=== PATIENT | female | born 1980 | race Caucasian/White ===

== ENCOUNTER 2024-05-25 00:02 | Inpatient (IN) | payer BC ==
[2024-05-25] MEDS ORDERED: EPINEPHrine 10 ML SYRINGE (0.1 MG/ML) ONE (00:04)
[2024-05-25] MEDS ORDERED: SODIUM BICARB 8.4% 50 ML SYR (1 MEQ/ML) ONE (00:04)
[2024-05-25] MEDS: SODIUM CHLORIDE 0.9% 1,000 ML IV STA ×2 (00:07→00:10)
[2024-05-25] MEDS: MAGNESIUM SULFATE-D5W PMX 1 GM in DEXTROSE/WATER 1 100ML.BAG IVPB ONE (00:09)
[2024-05-25 00:18] LABS: Glucose,Whole Blood 107 mg/dL (70-110)
[2024-05-25] MEDS ORDERED: fentaNYL (PF) 50 MCG/ML 2 ML AMP IVP PRN (00:28)
--- NOTE | 2024-05-25 00:31 | ED ---
General Adult HPI - General Chief complaint: Cardiac Arrest/CPR Stated complaint: Cardiac Arrest Time Seen by Provider: 05/25/24 00:20 Source: EMS Mode of arrival: EMS - History of Present Illness Initial comments: This is a 43-year-old female with no known medical history presenting after cardiac arrest. Patient was seen to grab her thigh than her chest, by her at 10:52 PM this evening and then collapsed. called 911 and initiated compressions. First responders arrived to the scene at 1058 and continued ACLS measures. Initially in asystole. Patient received 5 rounds of epi and was noted to be in V. tach on EMS monitor so she received 300 mg amiodarone and defibrillation. ROSC was achieved and patient was transported to the ED. En route to the hospital approximately 15 minutes prior to arrival pulses were lost and compressions were restarted. Patient was again in tach, was shocked, epi was given and pulses were not regained. On arrival to the ED patient was in PEA. She does appear jaundiced with severe scleral icterus. She does not appear to have a dialysis catheter in place. Per EMS report from patient's , patient does not have any known medical problems does not take any medications every day . Pt collapsed on her couch and did not suffer any head trauma. - Related Data Allergies Allergy/AdvReac Type Severity Reaction Status Date / Time No Known Allergies Allergy Verified 05/25/24 02:07 Review of Systems ROS Statement: Those systems with pertinent positive or pertinent negative responses have been documented in the HPI. ROS Other: All systems not noted in ROS Statement are negative. Limitations: ROS unobtainable due to patients medical condition Past Medical History Past Medical History: No Reported History Past Surgical History: No Surgical Hx Reported General Exam - General Exam Comments Initial Comments: PE: CONSTITUTIONAL ill-appearing, unresponsive, jaundiced, Igel in place SKIN: Cool, dry, jaundiced, scattered bruising on legs EYES:Pupils are fixed, 2-3 mm, severe scleral icterus HENT: normocephalic, atraumatic, moist mucus membranes, oropharynx clear without exudates NECK: , normal appearance PULMONARY: Diffuse rhonchi, rales and wheezes bilaterally with assisted ventilations CARDIOVASCULAR: Pulseless, extremities cool and pale, no LE edema GASTROINTESTINAL:Soft, active bowel sounds throughout, non-tender, Mildly dist ended, hepatomegaly noted, otherwise no palpable masses, no rebound or guarding MUSCULOSKELETAL: Extremities have no gross deformity, no edema, redness, or swelling. No calf swelling, no signs of injury present NEUROLOGIC: a/o x 0, GCS 3, unresponsive PSYCHIATRIC: Unable to assess Course Vital Signs 05/25/24 05/25/24 05/25/24 00:10 00:25 00:30 Temperature Pulse Rate 0 L Respiratory 0 L Rate Blood Pressure O2 Sat by Pulse 0 L Oximetry Fraction of 100 100 Inspired Oxygen (FIO2) 05/25/24 05/25/24 05/25/24 00:53 00:55 01:00 Temperature Pulse Rate 92 90 91 Respiratory 17 21 20 Rate Blood Pressure 104/74 106/73 111/91 O2 Sat by Pulse 66 L 65 L Oximetry Fraction of Inspired Oxygen (FIO2) 05/25/24 05/25/24 05/25/24 01:05 01:30 01:35 Temperature Pulse Rate 92 98 90 Respiratory 18 20 20 Rate Blood Pressure 107/73 103/63 99/61 O2 Sat by Pulse 70 L 71 L 71 L Oximetry Fraction of Inspired Oxygen (FIO2) 05/25/24 05/25/24 05/25/24 01:40 01:45 01:50 Temperature 93.4 F L Pulse Rate 100 89 88 Respiratory 20 20 18 Rate Blood Pressure 98/67 93/65 92/60 O2 Sat by Pulse 70 L 74 L 78 L Oximetry Fraction of Inspired Oxygen (FIO2) 05/25/24 05/25/24 05/25/24 01:55 01:58 02:00 Temperature Pulse Rate 85 87 Respiratory 11 L 12 Rate Blood Pressure 90/60 92/55 O2 Sat by Pulse 89 L 87 L Oximetry Fraction of 100 Inspired Oxygen (FIO2) 05/25/24 05/25/24 05/25/24 02:05 02:10 02:20 Temperature Pulse Rate 86 87 87 Respiratory 24 23 8 L Rate Blood Pressure 85/69 86/68 90/60 O2 Sat by Pulse 88 L 90 L 94 L Oximetry Fraction of Inspired Oxygen (FIO2) 05/25/24 05/25/24 05/25/24 02:30 02:40 02:50 Temperature Pulse Rate 87 91 91 Respiratory 22 23 18 Rate Blood Pressure 95/65 98/66 99/66 O2 Sat by Pulse 94 L 94 L 91 L Oximetry Fraction of Inspired Oxygen (FIO2) 05/25/24 05/25/24 05/25/24 03:00 03:10 03:20 Temperature Pulse Rate 94 96 97 Respiratory 19 22 14 Rate Blood Pressure 100/66 96/71 101/63 O2 Sat by Pulse 87 L 86 L 83 L Oximetry Fraction of Inspired Oxygen (FIO2) 05/25/24 05/25/24 05/25/24 03:30 03:40 03:49 Temperature Pulse Rate 99 99 Respiratory 22 18 Rate Blood Pressure 99/64 103/64 O2 Sat by Pulse 78 L 77 L Oximetry Fraction of 100 Inspired Oxygen (FIO2) 05/25/24 05/25/24 05/25/24 03:50 04:00 04:05 Temperature 94.8 F L Pulse Rate 100 100 103 H Respiratory 17 16 20 Rate Blood Pressure 94/69 93/67 80/67 O2 Sat by Pulse 77 L 73 L 72 L Oximetry Fraction of Inspired Oxygen (FIO2) 05/25/24 05/25/24 05/25/24 04:10 04:15 04:20 Temperature Pulse Rate 102 H 104 H 105 H Respiratory 20 20 20 Rate Blood Pressure 88/67 88/62 88/62 O2 Sat by Pulse 74 L Oximetry Fraction of Inspired Oxygen (FIO2) 05/25/24 05/25/24 05/25/24 04:25 04:30 04:35 Temperature Pulse Rate 105 H 104 H 106 H Respiratory 20 20 20 Rate Blood Pressure 92/58 92/58 79/62 O2 Sat by Pulse 75 L Oximetry Fraction of Inspired Oxygen (FIO2) 05/25/24 05/25/24 05/25/24 04:40 04:45 04:50 Temperature Pulse Rate 106 H 106 H 108 H Respiratory 20 20 20 Rate Blood Pressure 79/62 94/61 99/62 O2 Sat by Pulse 75 L 71 L 75 L Oximetry Fraction of Inspired Oxygen (FIO2) 05/25/24 05/25/24 05/25/24 04:55 05:00 05:01 Temperature 96.6 F L Pulse Rate 108 H 107 H Respiratory 20 20 Rate Blood Pressure 91/58 88/54 O2 Sat by Pulse 71 L 75 L Oximetry Fraction of Inspired Oxygen (FIO2) 05/25/24 05/25/24 05/25/24 05:05 05:10 05:15 Temperature Pulse Rate 106 H 107 H 107 H Respiratory 20 20 20 Rate Blood Pressure 86/54 87/54 104/55 O2 Sat by Pulse 54 L 63 L 65 L Oximetry Fraction of Inspired Oxygen (FIO2) 05/25/24 05/25/24 05/25/24 05:20 05:25 05:30 Temperature Pulse Rate 107 H 106 H 106 H Respiratory 20 20 20 Rate Blood Pressure 84/56 91/57 82/55 O2 Sat by Pulse 64 L 67 L 69 L Oximetry Fraction of Inspired Oxygen (FIO2) 05/25/24 05/25/24 05/25/24 05:35 05:40 05:41 Temperature 97.3 F L Pulse Rate 105 H 107 H Respiratory 20 20 Rate Blood Pressure 81/54 84/55 O2 Sat by Pulse 69 L 66 L Oximetry Fraction of Inspired Oxygen (FIO2) 05/25/24 05/25/24 05/25/24 05:45 05:50 05:55 Temperature Pulse Rate 107 H 106 H 105 H Respiratory 20 20 20 Rate Blood Pressure 88/58 83/54 79/55 O2 Sat by Pulse 67 L 63 L 64 L Oximetry Fraction of Inspired Oxygen (FIO2) 05/25/24 05/25/24 05/25/24 06:00 06:05 06:10 Temperature Pulse Rate 105 H 105 H 105 H Respiratory 20 20 20 Rate Blood Pressure 81/51 90/43 80/49 O2 Sat by Pulse 63 L 66 L 70 L Oximetry Fraction of Inspired Oxygen (FIO2) 05/25/24 05/25/24 05/25/24 06:15 06:20 06:25 Temperature 97.5 F L Pulse Rate 105 H 105 H 105 H Respiratory 20 20 20 Rate Blood Pressure 77/36 79/45 79/50 O2 Sat by Pulse 63 L 62 L 61 L Oximetry Fraction of Inspired Oxygen (FIO2) 05/25/24 05/25/24 05/25/24 06:30 06:35 06:40 Temperature Pulse Rate 104 H 104 H 103 H Respiratory 20 20 20 Rate Blood Pressure 81/48 77/49 74/42 O2 Sat by Pulse 63 L 62 L 59 L Oximetry Fraction of Inspired Oxygen (FIO2) 05/25/24 05/25/24 05/25/24 06:45 06:50 06:55 Temperature Pulse Rate 101 H 98 96 Respiratory 20 20 20 Rate Blood Pressure 71/42 74/48 67/43 O2 Sat by Pulse 63 L 65 L Oximetry Fraction of Inspired Oxygen (FIO2) 05/25/24 05/25/24 07:37 07:55 Temperature 98.2 F Pulse Rate 104 H 67 Respiratory 16 Rate Blood Pressure 102/57 80/33 O2 Sat by Pulse 84 L 43 L Oximetry Fraction of Inspired Oxygen (FIO2) EKG Findings - EKG Comments: EKG Findings:: Sinus tachycardia, rate 111 bpm, QRS duration 186 ms, QT/QTc 450/ 515 ms, widened QRS, significant artifact present limiting interpretation, possible left axis deviation, question [address] depression lead AvF, no ST elevation, no STEMI. Repeat EKG obtained at 6 AM due to elevation in troponin, sinus tachycardia, rate 105 bpm, [place] interval 128 ms, QRS duration 112 ms, QT/QTc 402/463 ms, normal axis, artifact is present though no clear ST elevations or depressions when compared to prior, ST depressions from original EKG appears improved fromt prior, overal improved from prior no STEMI Procedures - Central Line Placement Right IJ Consent Obtained: emergent situation Patient Placed on Monitor/Pulse Ox: Yes MD Prep: mask, gloves Central Line Prep: Chlorhexidine scrub, sterile drapes applied Local Anesthesia Used: Lidocaine 1% Amount of Anesthesia Used (mls): 1 Ultrasound Used for Placement: Yes Central Line Lumen Inserted: triple Bloods Obtained for Lab: No Central Line Position: good blood return, all ports aspirated, flushed, capped, sutured in place with 2-0 silk Dressing Applied: Tegaderm Post Procedure X-Ray: tip of catheter in good position Patient Tolerated Procedure: well Complications: none - Intubation Laryngoscope: Donnie Size: 3 Assist Device Used: other (glydescope) ET Tube Size: 7.5 ET Tube Uncuffed: No Tube Secured Depth (cm): 22 (at teeth) Tube Secured Location: teeth Tube Placement Confirmation: visualized tube passing through cords, equal breath sounds bilaterally, no breath sounds over epigastrium, confirmation by capnometry Patient Tolerated Procedure: well Additional Comments: placement confirmed with XR, initially 6 cm above mati, adjsuted then 1 cm above mati, then 4 cm above mati in satisfactory position Medical Decision Making - Medical Decision Making Was pt. sent in by a medical professional or institution (, PA, ELECTRIC DISTRIBUTION ENGINEER, urgent care, hospital, or penitentiary...) When possible be specific @ -No Did you speak to anyone other than the patient for history (EMS, parent, family, police, friend...)? What history was obtained from this source @ -Spoke with EMS who provided the report noted in HPI Did you review nursing and triage notes (agree or disagree)? Why? @ -I reviewed and agree with nursing and triage notes Were old charts reviewed (outside hosp., previous admission, EMS record, old EKG, old radiological studies, urgent care reports/EKG's, penitentiary records)? Report findings @No medical records are available for review Differential Diagnosis (chest pain, altered mental status, abdominal pain women, abdominal pain men, vaginal bleeding, weakness, fever, dyspnea, syncope, headache, dizziness, GI bleed, back pain, seizure, CVA, palpatations, mental health, musculoskeletal)? @ Differential diagnosis remains broad however top considerations include cardiac arrest 2/2 PE, ACS, tamponade, medication overdose, hyperkalemia/electrolyte abnormality, hypoxemia, infection, this is not an all inclusive list EKG interpreted by me (3pts min.). @ -As above X-rays interpreted by me (1pt min.). @XR #1: ETT 6 cm above mati, diffuse pulmonary edema- Requested ETT be moved down 2-3 CM XR #2- ETT 1 cm above mati, CVC in place in distal IVC, persistent pulmonary edema- requested ETT be retracted 2-3 cm XR #3- ETT in improved position, 4 cm above mati, persistent pulmonary edema CT interpreted by me (1pt min.). CT brain showed no hemorrhage or mass, CT PE study shows no massive or submassive PE, diffuse interstitual lung disease, hepatomegaly U/S interpreted by me (1pt. min.). @ -None done What testing was considered but not performed or refused? (CT, X-rays, U/S, labs)? Why? @ Considered US RUQ however US not available overnight and US was no called in as do not feel it will change patient's immediate outcome What meds were considered but not given or refused? Why? @ Considered additional IV fluid bolus and maintenance fluids however patient appeared to have severe pulmonary edema and was very difficulty to oxygenate, so further IV fluids were held in order to avoid further worsening pulmonary edema Did you discuss the management of the patient with other professionals (professionals i.e. , PA, ELECTRIC DISTRIBUTION ENGINEER, lab, RT, psych nurse, administrator social welfare, orthopaedic nurse, teacher, inspectors and regulatory officers, complex case manager)? Give summary @ Yes this case was discussed with Critical Care physician Dr. Rowland, agreeable with being on consult/ admit to ICU. Dr. Rowland was called later in the morning as pt was boarding in ED and status continued to deteriorate, difficult to oxygenate, kindly rec'd IV lasix, increasing PEEP from 10 to 15. Case was discussed with Dr. Zhu, cardiology, due to sharp increase in troponin elevation. He discussed with me that troponin elevation likely 2/2 pt's cardiac arrest multiple times and not ACS, rec's against heparinizing Was smoking cessation discussed for >3mins.? @ -No Was critical care preformed (if so, how long)? @ -Yes 75 minutes Were there social determinants of health that impacted care today? How? (Homelessness, low income, unemployed, alcoholism, drug addiction, transportation, low edu. Level, literacy, decrease access to med. care, skilled nursing, rehab)? @ -No Was there de-escalation of care discussed even if they declined (Discuss DNR or withdrawal of care, Hospice)? @Yes, initiated discussions with pt's withdrawal of care, ultimately Dr. Rowland arrived and took over this discussion What co-morbidities impacted this encounter? (DM, HTN, Smoking, COPD, CAD, Cancer, CVA, ARF, Chemo, Hep., AIDS, mental health diagnosis, sleep apnea, morbid obesity)? @ -None Was patient admitted / discharged? Hospital course, mention meds given and route, prescriptions, significant lab abnormalities, going to OR and other [facility] info. @ Admission to ICU Patient is a 43-year-old female with only med hx of psoriasis, presenting today status post cardiac arrest. Patient presents via EMS in active arrest. CPR ongoing. On pulse check was in PEA. Patient given amp of bicarb, calcium gluconate, magnesium. Approximately 2 rounds CPR continued and ROSC was achieved. Patient intubated. Exam shows significant scleral icterus, fixed pupils 2-3 mm, jaundice, distended but otherwise soft abdomen, rhonchorous and wheezing breath sounds bilaterally with assisted respirations, normal S1-S2 on cardiac exam, scattered bruising of the lower extremities. Pulses were lost briefly and after an additional 1 round of CPR ROSC was achieved. Bedside ultrastound showed no tamponade and no right heart strain. Alteplase was con sidered as PE was considered as cause of cardiac arrest given patient's age however this was ultimately held. 2 L IV fluids started, orders placed, including comprehensive labs, CT brain, CT PE study. EKG showed no clear STEMI but widened QRS. Initial vent settings were used with PEEP 5, Vt 400 cc, RR 20, FiO2 100%. CT brain showed anoxic brain injury, CT PE study negative for PE but did show d iffuse pulmonary edema. Patient was initially started on 2 L IV fluids over this was discontinued due to severe pulmonary edema and was started on Levophed. CVC placed. Hgb 10.3, no prior for comparison. White blood cell count 18.5 and due to bilateral airspace disease she was started on Zosyn. Wheezes were also noted bilaterally so nebulizer treatments were given. Pt difficult to oxygenate so PEEP subsequently increased to 8 and then 10, with improved oxygenation to 95%. K 2.2, 60 mEq K ordered via central line. Initial troponin 0.296. Lactic 15. pH noted to be 6.98, additional amp bicarb given. LFTs elevated, AST/ALT 189/37, alkaline phosphatase 230, total bilirubin 6.3, D-dimer 34 greater than 34.1, PTT 37.6, INR 2.0 PT 19.8 I suspect coagulation studies are elevated secondary to liver dysfunction. EDMAR 66. Patient's arrived and discussed patient's current status and medical hx. He denied any significant medical hx. Was previously on ozempic until a few months ago, otherwise no other meds or medical problems. States pt was not a heavy alcohol user, and may have a few "truly's" a few times a week. Discussed plan for ICU admission and pt's critical condition. Case discussed with Dr. Rowland. ICU currently full so pt will need to remain in ED. Cased discussed w/ Dr. Gee, accepts for admisson. Though patient admitted to ICU, she remained in ED throughout my shift, as noted above, pt remained difficult to ventilate. Repeat ABG showed minimal improvement in pH to 7.04, improved ventilation with pCO2 44, pO2 has since decreased to 58 HCO3 12, total CO2 13, O2 saturation 71%, so Dr. Rowland was again consulted, see recs above. Hgb on ABG appeared overall stable, 9.8. Pt became more hypotensive despite levophed so RN, Stacy, also contacted Dr. Rowland, who rec'd addition of vasopressin. Troponin repeated and ~36, so EKG was repeated and did not show new ischemic changes, cardiology consulted and between pt's elevated INR, which I suspected was 2/2 hepatic dysfunction, and cards recs against heparin, heparin was withheld. Pt's status continued to decline, despite 2 pressors, vent adjustments, above treatments. As my shift came to a close she did suffer another cardiac arrest, Rosc was achieved after approx 2 rounds CPR. I called pt's , Vicente, to discuss pt's poor prognosis and low likelihood of improvement. Pt's arrived at bedside with children. I updated them to pt's poor prognosis. At this point Dr. Rowland arrived and took over discussion regarding goals of care. Undiagnosed new problem with uncertain prognosis? @ -No Drug Therapy requiring intensive monitoring for toxicity (Heparin, Nitro, Insulin, Cardizem)? @ -Yes, norepinephrine, vasopressin, fentanyl, propofol Were any procedures done? @Yes, intubation and central line placement Diagnosis/symptom? @Cardiac arrest, acute liver failure, anoxic brain injury, hypokalemia Acute, or Chronic, or Acute on Chronic? @Acute Uncomplicated (without systemic symptoms) or Complicated (systemic symptoms)? @ -complicated Side effects of treatment? @ -No Exacerbation, Progression, or Severe Exacerbation? @ -No Poses a threat to life or bodily function? How? (Chest pain, [place], PR, pneumonia, PE, COPD, DKA, ARF, appy, cholecystitis, CVA, Diverticulitis, Homicidal, Suicidal, threat to staff... and all critical care pts) @Yes - Lab Data Result diagrams: 05/25/24 00:17 05/25/24 00:17 Lab Results 05/25/24 05/25/24 05/25/24 Range/Units 00:05 00:17 00:17 WBC 18.5 H (3.8-10.6) k/uL RBC 2.89 L (3.80-5.40) m/uL Hgb 10.3 L (11.4-16.0) gm/dL Hct 34.0 (34.0-46.0) % MCV 117.8 H (80.0-100.0) fL MCH 35.7 H (25.0-35.0) pg MCHC 30.3 L (31.0-37.0) g/dL RDW 19.1 H (11.5-15.5) % Plt Count 150 (150-450) k/uL MPV 10.3 Neutrophils % 62 % Lymphocytes % 27 % Monocytes % 5 % Eosinophils % 2 % Basophils % 1 % Neutrophils # 11.5 H (1.3-7.7) k/uL Lymphocytes # 5.1 H (1.0-4.8) k/uL Monocytes # 0.9 (0-1.0) k/uL Eosinophils # 0.3 (0-0.7) k/uL Basophils # 0.2 (0-0.2) k/uL Hypochromasia Marked Anisocytosis Slight Macrocytosis Marked A PT 19.8 H (10.0-12.5) sec INR 2.0 H (<1.2) APTT 37.6 H (22.0-30.0) sec D-Dimer >34.10 H (<0.60) mg/L FEU Sample Site ABG pH (7.35-7.45) ABG pCO2 (35-45) mmHg ABG pO2 (83-108) mmHg ABG HCO3 (21-25) mmol/L ABG Total CO2 (19-24) mmol/L ABG O2 Saturation (94-97) % ABG Base Excess mmol/L Kevin Test FiO2 % Sodium (137-145) mmol/L Potassium (3.5-5.1) mmol/L Chloride (98-107) mmol/L Carbon Dioxide (22-30) mmol/L Anion Gap mmol/L BUN (7-17) mg/dL Creatinine (0.52-1.04) mg/dL Est GFR (CKD-EPI)AfAm (>60 ml/min/1.73 sqM) Est GFR (CKD-EPI)NonAf (>60 ml/min/1.73 sqM) Glucose (74-99) mg/dL POC Glucose (mg/dL) 107 (70-110) mg/dL POC Glu Nutritional Services Cook ID [place] Lactic Ac Sepsis Rflx Plasma Lactic Acid Moody (0.7-2.0) mmol/L Calcium (8.4-10.2) mg/dL Magnesium (1.6-2.3) mg/dL Total Bilirubin (0.2-1.3) mg/dL AST (14-36) U/L ALT (4-34) U/L Alkaline Phosphatase (38-126) U/L Troponin I (0.000-0.034) ng/mL Total Protein (6.3-8.2) g/dL Albumin (3.5-5.0) g/dL HCG, Quant mIU/mL Urine Opiates Screen (NotDetected) Ur Oxycodone Screen (NotDetected) Urine Methadone Screen (NotDetected) Ur Barbiturates Screen (NotDetected) U Tricyclic Antidepress (NotDetected) Ur Phencyclidine Scrn (NotDetected) Ur Amphetamines Screen (NotDetected) U Methamphetamines Scrn (NotDetected) U Benzodiazepines Scrn (NotDetected) Urine Cocaine Screen (NotDetected) U Marijuana (THC) Screen (NotDetected) Serum Alcohol mg/dL 05/25/24 05/25/24 05/25/24 Range/Units 00:17 00:17 00:18 WBC (3.8-10.6) k/uL RBC (3.80-5.40) m/uL Hgb (11.4-16.0) gm/dL Hct (34.0-46.0) % MCV (80.0-100.0) fL MCH (25.0-35.0) pg MCHC (31.0-37.0) g/dL RDW (11.5-15.5) % Plt Count (150-450) k/uL MPV Neutrophils % % Lymphocytes % % Monocytes % % Eosinophils % % Basophils % % Neutrophils # (1.3-7.7) k/uL Lymphocytes # (1.0-4.8) k/uL Monocytes # (0-1.0) k/uL Eosinophils # (0-0.7) k/uL Basophils # (0-0.2) k/uL Hypochromasia Anisocytosis Macrocytosis PT (10.0-12.5) sec INR (<1.2) APTT (22.0-30.0) sec D-Dimer (<0.60) mg/L FEU Sample Site ABG pH (7.35-7.45) ABG pCO2 (35-45) mmHg ABG pO2 (83-108) mmHg ABG HCO3 (21-25) mmol/L ABG Total CO2 (19-24) mmol/L ABG O2 Saturation (94-97) % ABG Base Excess mmol/L Kevin Test FiO2 % Sodium 144 (137-145) mmol/L Potassium 2.2 L* (3.5-5.1) mmol/L Chloride 109 H (98-107) mmol/L Carbon Dioxide 15 L (22-30) mmol/L Anion Gap 20 mmol/L BUN <2 L (7-17) mg/dL Creatinine 0.67 (0.52-1.04) mg/dL Est GFR (CKD-EPI)AfAm >90 (>60 ml/min/1.73 sqM) Est GFR (CKD-EPI)NonAf >90 (>60 ml/min/1.73 sqM) Glucose 113 H (74-99) mg/dL POC Glucose (mg/dL) (70-110) mg/dL POC Glu Nutritional Services Cook ID Lactic Ac Sepsis Rflx Plasma Lactic Acid Moody 15.6 H* (0.7-2.0) mmol/L Calcium 11.2 H (8.4-10.2) mg/dL Magnesium 2.3 (1.6-2.3) mg/dL Total Bilirubin 6.3 H (0.2-1.3) mg/dL AST 189 H (14-36) U/L ALT 37 H (4-34) U/L Alkaline Phosphatase 230 H (38-126) U/L Troponin I 0.296 H* (0.000-0.034) ng/mL Total Protein 7.0 (6.3-8.2) g/dL Albumin 2.6 L (3.5-5.0) g/dL HCG, Quant mIU/mL Urine Opiates Screen (NotDetected) Ur Oxycodone Screen (NotDetected) Urine Methadone Screen (NotDetected) Ur Barbiturates Screen (NotDetected) U Tricyclic Antidepress (NotDetected) Ur Phencyclidine Scrn (NotDetected) Ur Amphetamines Screen (NotDetected) U Methamphetamines Scrn (NotDetected) U Benzodiazepines Scrn (NotDetected) Urine Cocaine Screen (NotDetected) U Marijuana (THC) Screen (NotDetected) Serum Alcohol mg/dL 05/25/24 05/25/24 05/25/24 Range/Units 00:45 00:45 01:16 WBC (3.8-10.6) k/uL RBC (3.80-5.40) m/uL Hgb (11.4-16.0) gm/dL Hct (34.0-46.0) % MCV (80.0-100.0) fL MCH (25.0-35.0) pg MCHC (31.0-37.0) g/dL RDW (11.5-15.5) % Plt Count (150-450) k/uL MPV Neutrophils % % Lymphocytes % % Monocytes % % Eosinophils % % Basophils % % Neutrophils # (1.3-7.7) k/uL Lymphocytes # (1.0-4.8) k/uL Monocytes # (0-1.0) k/uL Eosinophils # (0-0.7) k/uL Basophils # (0-0.2) k/uL Hypochromasia Anisocytosis Macrocytosis PT (10.0-12.5) sec INR (<1.2) APTT (22.0-30.0) sec D-Dimer (<0.60) mg/L FEU Sample Site ABG pH (7.35-7.45) ABG pCO2 (35-45) mmHg ABG pO2 (83-108) mmHg ABG HCO3 (21-25) mmol/L ABG Total CO2 (19-24) mmol/L ABG O2 Saturation (94-97) % ABG Base Excess mmol/L Kevin Test FiO2 % Sodium (137-145) mmol/L Potassium (3.5-5.1) mmol/L Chloride (98-107) mmol/L Carbon Dioxide (22-30) mmol/L Anion Gap mmol/L BUN (7-17) mg/dL Creatinine (0.52-1.04) mg/dL Est GFR (CKD-EPI)AfAm (>60 ml/min/1.73 sqM) Est GFR (CKD-EPI)NonAf (>60 ml/min/1.73 sqM) Glucose (74-99) mg/dL POC Glucose (mg/dL) (70-110) mg/dL POC Glu Nutritional Services Cook ID Lactic Ac Sepsis Rflx Y Plasma Lactic Acid Moody (0.7-2.0) mmol/L Calcium (8.4-10.2) mg/dL Magnesium (1.6-2.3) mg/dL Total Bilirubin (0.2-1.3) mg/dL AST (14-36) U/L ALT (4-34) U/L Alkaline Phosphatase (38-126) U/L Troponin I (0.000-0.034) ng/mL Total Protein (6.3-8.2) g/dL Albumin (3.5-5.0) g/dL HCG, Quant <2.4 mIU/mL Urine Opiates Screen Not Detected (NotDetected) Ur Oxycodone Screen Not Detected (NotDetected) Urine Methadone Screen Not Detected (NotDetected) Ur Barbiturates Screen Not Detected (NotDetected) U Tricyclic Antidepress Not Detected (NotDetected) Ur Phencyclidine Scrn Not Detected (NotDetected) Ur Amphetamines Screen Not Detected (NotDetected) U Methamphetamines Scrn Not Detected (NotDetected) U Benzodiazepines Scrn Not Detected (NotDetected) Urine Cocaine Screen Not Detected (NotDetected) U Marijuana (THC) Screen Not Detected (NotDetected) Serum Alcohol 66 mg/dL 05/25/24 05/25/24 05/25/24 Range/Units 01:40 04:33 04:52 WBC (3.8-10.6) k/uL RBC (3.80-5.40) m/uL Hgb (11.4-16.0) gm/dL Hct (34.0-46.0) % MCV (80.0-100.0) fL MCH (25.0-35.0) pg MCHC (31.0-37.0) g/dL RDW (11.5-15.5) % Plt Count (150-450) k/uL MPV Neutrophils % % Lymphocytes % % Monocytes % % Eosinophils % % Basophils % % Neutrophils # (1.3-7.7) k/uL Lymphocytes # (1.0-4.8) k/uL Monocytes # (0-1.0) k/uL Eosinophils # (0-0.7) k/uL Basophils # (0-0.2) k/uL Hypochromasia Anisocytosis Macrocytosis PT (10.0-12.5) sec INR (<1.2) APTT (22.0-30.0) sec D-Dimer (<0.60) mg/L FEU Sample Site Right Brachial Right Brachial ABG pH 6.98 L* 7.04 L* (7.35-7.45) ABG pCO2 54 H 44 (35-45) mmHg ABG pO2 72 L 58 L* (83-108) mmHg ABG HCO3 13 L 12 L (21-25) mmol/L ABG Total CO2 15 L 13 L (19-24) mmol/L ABG O2 Saturation 80.0 L 71.0 L (94-97) % ABG Base Excess -17.9 -17.9 mmol/L Kevin Test Yes Yes FiO2 100 100 % Sodium (137-145) mmol/L Potassium (3.5-5.1) mmol/L Chloride (98-107) mmol/L Carbon Dioxide (22-30) mmol/L Anion Gap mmol/L BUN (7-17) mg/dL Creatinine (0.52-1.04) mg/dL Est GFR (CKD-EPI)AfAm (>60 ml/min/1.73 sqM) Est GFR (CKD-EPI)NonAf (>60 ml/min/1.73 sqM) Glucose (74-99) mg/dL POC Glucose (mg/dL) (70-110) mg/dL POC Glu Nutritional Services Cook ID Lactic Ac Sepsis Rflx Plasma Lactic Acid Moody 17.9 H* (0.7-2.0) mmol/L Calcium (8.4-10.2) mg/dL Magnesium (1.6-2.3) mg/dL Total Bilirubin (0.2-1.3) mg/dL AST (14-36) U/L ALT (4-34) U/L Alkaline Phosphatase (38-126) U/L Troponin I (0.000-0.034) ng/mL Total Protein (6.3-8.2) g/dL Albumin (3.5-5.0) g/dL HCG, Quant mIU/mL Urine Opiates Screen (NotDetected) Ur Oxycodone Screen (NotDetected) Urine Methadone Screen (NotDetected) Ur Barbiturates Screen (NotDetected) U Tricyclic Antidepress (NotDetected) Ur Phencyclidine Scrn (NotDetected) Ur Amphetamines Screen (NotDetected) U Methamphetamines Scrn (NotDetected) U Benzodiazepines Scrn (NotDetected) Urine Cocaine Screen (NotDetected) U Marijuana (THC) Screen (NotDetected) Serum Alcohol mg/dL 05/25/24 Range/Units 04:52 WBC (3.8-10.6) k/uL RBC (3.80-5.40) m/uL Hgb (11.4-16.0) gm/dL Hct (34.0-46.0) % MCV (80.0-100.0) fL MCH (25.0-35.0) pg MCHC (31.0-37.0) g/dL RDW (11.5-15.5) % Plt Count (150-450) k/uL MPV Neutrophils % % Lymphocytes % % Monocytes % % Eosinophils % % Basophils % % Neutrophils # (1.3-7.7) k/uL Lymphocytes # (1.0-4.8) k/uL Monocytes # (0-1.0) k/uL Eosinophils # (0-0.7) k/uL Basophils # (0-0.2) k/uL Hypochromasia Anisocytosis Macrocytosis PT (10.0-12.5) sec INR (<1.2) APTT (22.0-30.0) sec D-Dimer (<0.60) mg/L FEU Sample Site ABG pH (7.35-7.45) ABG pCO2 (35-45) mmHg ABG pO2 (83-108) mmHg ABG HCO3 (21-25) mmol/L ABG Total CO2 (19-24) mmol/L ABG O2 Saturation (94-97) % ABG Base Excess mmol/L Kevin Test FiO2 % Sodium (137-145) mmol/L Potassium (3.5-5.1) mmol/L Chloride (98-107) mmol/L Carbon Dioxide (22-30) mmol/L Anion Gap mmol/L BUN (7-17) mg/dL Creatinine (0.52-1.04) mg/dL Est GFR (CKD-EPI)AfAm (>60 ml/min/1.73 sqM) Est GFR (CKD-EPI)NonAf (>60 ml/min/1.73 sqM) Glucose (74-99) mg/dL POC Glucose (mg/dL) (70-110) mg/dL POC Glu Nutritional Services Cook ID Lactic Ac Sepsis Rflx Plasma Lactic Acid Moody (0.7-2.0) mmol/L Calcium (8.4-10.2) mg/dL Magnesium (1.6-2.3) mg/dL Total Bilirubin (0.2-1.3) mg/dL AST (14-36) U/L ALT (4-34) U/L Alkaline Phosphatase (38-126) U/L Troponin I 36.400 H* (0.000-0.034) ng/mL Total Protein (6.3-8.2) g/dL Albumin (3.5-5.0) g/dL HCG, Quant mIU/mL Urine Opiates Screen (NotDetected) Ur Oxycodone Screen (NotDetected) Urine Methadone Screen (NotDetected) Ur Barbiturates Screen (NotDetected) U Tricyclic Antidepress (NotDetected) Ur Phencyclidine Scrn (NotDetected) Ur Amphetamines Screen (NotDetected) U Methamphetamines Scrn (NotDetected) U Benzodiazepines Scrn (NotDetected) Urine Cocaine Screen (NotDetected) U Marijuana (THC) Screen (NotDetected) Serum Alcohol mg/dL Disposition Clinical Impression: Cardiac arrest, Hypokalemia, Pulmonary edema, Anoxic brain injury, Hepatic dysfunction Disposition: ADMITTED IP TO THIS HOSP Condition: Critical
--- NOTE | 2024-05-25 00:39 | XR ---
EXAMINATION TYPE: XR chest 1V portable DATE OF EXAM: 05/25/2024 12:32 AM COMPARISON: None. CLINICAL INDICATION: Female, 43 years old with history of chest pain, cardiac arrest TECHNIQUE: XR chest 1V portable view(s) obtained. FINDINGS: The heart size is mildly prominent. The pulmonary vasculature is prominent. diffuse increased lung markings are through the upper lung fi elds. Correlate for pulmonary edema.. Endotracheal tube tip is 6 cm above the mati. Nasogastric tube transverses the thorax. No acute osseous abnormality is radiographically apparent. No pneumothorax is evident IMPRESSION: 1. Diffuse increased lung markings can be compatible with pulmonary edema 2. Mild cardiomegaly. 3. Lines and catheters discussed above [facility], , 05/25/2024 12:36 AM
[2024-05-25] MEDS: fentaNYL (PF) 50 MCG/ML 2 ML AMP IVP STA ×2 (00:40→01:04)
[2024-05-25 00:53] LABS: ALT 37 U/L (4-34); African American GFR (CKD) >90 (>60 ml/min/1.73 sqM); Albumin 2.6 g/dL (3.5-5.0); Anion Gap 20 mmol/L; Blood Urea Nitrogen <2 mg/dL (7-17); Calcium 11.2 mg/dL (8.4-10.2); Carbon Dioxide 15 mmol/L (22-30); Chloride 109 mmol/L (98-107); Glucose 113 mg/dL (74-99); Non-African American GFR(CKD) >90 (>60 ml/min/1.73 sqM); Sodium 144 mmol/L (137-145); Total Bilirubin 6.3 mg/dL (0.2-1.3)
[2024-05-25] MEDS: fentaNYL (PF). 1,000 MCG in SODIUM CHLORIDE 0.9% 80 ML IV SCH ×3 (00:58→01:02)
[2024-05-25] MEDS: T.ENECTEPLASE 5 MG/ML VIAL IVP STA ×2 (01:06→01:07)
[2024-05-25 01:11] LABS: Alcohol 66 mg/dL
[2024-05-25 01:12] LABS: Anisocytosis Slight; Basophils # (A) 0.2 k/uL (0-0.2); Basophils % (A) 1 %; Eosinophils # (A) 0.3 k/uL (0-0.7); Eosinophils % (A) 2 %; HGB 10.3 gm/dL (11.4-16.0); Hypochromasia Marked; Lymphocytes # (A) 5.1 k/uL (1.0-4.8); Lymphocytes % (A) 27 %; MCH 35.7 pg (25.0-35.0); MCHC 30.3 g/dL (31.0-37.0); Macrocytosis Marked; Mean Platelet Volume 10.3; Monocytes # (A) 0.9 k/uL (0-1.0); Monocytes % (A) 5 %; Neutrophils # (A) 11.5 k/uL (1.3-7.7); Neutrophils % (A) 62 %; Platelet Count 150 k/uL (150-450); RBC 2.89 m/uL (3.80-5.40); RDW 19.1 % (11.5-15.5); WBC 18.5 k/uL (3.8-10.6)
[2024-05-25 01:13] LABS: MCV 117.8 fL (80.0-100.0)
[2024-05-25 01:14] LABS: AST 189 U/L (14-36); Magnesium 2.3 mg/dL (1.6-2.3); Potassium 2.2 mmol/L (3.5-5.1)
[2024-05-25 01:15] LABS: Alkaline Phosphatase 230 U/L (38-126)
[2024-05-25 01:19] LABS: Partial Thromboplastin Time 37.6 sec (22.0-30.0); Prothrombin Time 19.8 sec (10.0-12.5)
[2024-05-25 01:25] LABS: Amphetamine Screen,Urine Not Detected (NotDetected); Barbiturate Screen,Urine Not Detected (NotDetected); Benzodiazepines Screen,Urine Not Detected (NotDetected); Cocaine Screen,Urine Not Detected (NotDetected); Methadone Screen, Urine Not Detected (NotDetected); Opiate Screen,Urine Not Detected (NotDetected); Oxycodone Screen, Urine Not Detected (NotDetected); Phencyclidine Screen,Urine Not Detected (NotDetected); Tricyclic Antidepressant,Urine Not Detected (NotDetected); Urn Cannabinoid Scrn Not Detected (NotDetected)
[2024-05-25 01:27] LABS: HCG,Quantitative Serum <2.4 mIU/mL
[2024-05-25] MEDS: IPRATROPIUM-ALBUTEROL 3 ML NEB INHALATION STA (01:30)
[2024-05-25] MEDS: POTASSIUM CHLORIDE 20 MEQ in WATER FOR INJECTION 1 100ML.BAG IVPB SCH (01:38)
--- NOTE | 2024-05-25 01:44 | XR ---
EXAMINATION TYPE: XR chest 1V portable DATE OF EXAM: 05/25/2024 1:34 AM COMPARISON: None. CLINICAL INDICATION: Female, 43 years old with history of ARTERIAL LINE/ET TUBE, TECHNIQUE: XR chest 1V portable view(s) obtained. FINDINGS: The heart size is prominent. The pulmonary vasculature is prominent. Diffuse increased lung markings through the upper lung denney likely on the basis of pulmonary edema. Endotracheal tube tip is overlying 0.8 cm and should be pulled back approximately 3 cm. Endotracheal tube transverses the thorax There is placement of a right central venous catheter with the tip in the distal superior vena cava r egion. No large pneumothorax evident. Lung apex out of the [id number]. Small pneumothorax may not be identified IMPRESSION: 1. Central venous catheter with tip in the distal superior vena cava region. No large pneumothorax id entified. [facility], , 05/25/2024 1:41 AM
--- NOTE | 2024-05-25 01:46 | CT ---
EXAMINATION TYPE: CT brain wo con DATE OF EXAM: 05/25/2024 1:32 AM COMPARISON: None. CLINICAL INDICATION: Female, 43 years old with history of cardiac arrest, CARDIAC ARREST TECHNIQUE: CT of the brain is performed utilizing 3 mm thick sections through the posterior fossa and 3 mm thick sections through the remaining calvarium. Study is performed within 24 hours of arrival to the hospital. Contrast used: mL of , (none if empty) CT DLP: 1838.9 mGycm, Automated exposure control for dose reduction was used. FINDINGS: No abnormal hyperdensity is present to suggest an acute intracranial hemorrhage. No mass lesion is evident. There is diffuse loss of mendoza-white matter differentiation which can be related to anoxic injury. Moody tricles and sulci may be normal for the patient's age. Some early edema is not excluded. Mucosal thickening and retention cysts within the maxillary sinuses and within ethmoid air cells. Rem aining paranasal sinuses and mastoid air cells are clear. IMPRESSION: 1. Diffuse loss of mendoza-white matter differentiation which can be related to anoxic injury. [facility], , 05/25/2024 1:43 AM
--- NOTE | 2024-05-25 01:50 | CT ---
EXAMINATION TYPE: CT chest angio for PE DATE OF EXAM: 05/25/2024 1:32 AM COMPARISON: None. CLINICAL INDICATION: Female, 43 years old with history of cardiac arrest, CARDIAC ARREST TECHNIQUE: CT of the chest is performed on a spiral scan at 2 mm thick sections. Study is performed with intravenous contrast timed for evaluation for pulmonary embolism. This will limit additional po rtions of the evaluation. 3-D MIP images reconstructed by the technologist are reviewed on the compu ter in the coronal and sagittal planes. Contrast used:100ml mL of Isovue 370 with IV Contrast, (none if empty) Oral contrast used: (none if empty) CT DLP: mGycm, Automated exposure control for dose reduction was used. FINDINGS: No persistent filling defects are evident to suggest an acute pulmonary embolism. No mediastinal or hilar adenopathy enlarged by CT criteria is evident. The ascending aorta diameter at the level of the main pulmonary artery is 3.1 cm. The main pulmonary artery diameter at the bifurcation is 3.1 cm. Diffuse increased density through the upper and mid lung denney and bases. Findings are felt to most likely represent pulmonary edema. Differential diagnosis could include atelectasis. Pneumonia is cons idered less likely. Direct no pneumothorax is evident. Endotracheal tube tip is at the level of the mati. Limited CT sections were through the upper abdomen. Ascites is present within the abdomen. Nasogastr ic tube tip is within the stomach. IMPRESSION: 1. No acute pulmonary embolism. 2. Diffuse pulmonary edema through the upper and lower lung denney. 3. Endotracheal tube tip at the mati and should be pulled back. 4. Ascites within the abdomen. [facility], , 05/25/2024 1:48 AM
[2024-05-25 01:56] LABS: Allen Test Performed? Yes
[2024-05-25 01:57] LABS: ABG Base Excess -17.9 mmol/L; ABG HCO3 13 mmol/L (21-25); ABG PCO2 54 mmHg (35-45); ABG PH 6.98 (7.35-7.45); ABG PO2 72 mmHg (83-108); ABG TCO2 15 mmol/L (19-24)
[2024-05-25] MEDS: NOREPINEPHRINE 4 MG in SODIUM CHLORIDE 0.9% 250 ML IV ONE (02:02)
[2024-05-25] MEDS: SODIUM BICARB 8.4% 50 ML SYR (1 MEQ/ML) IV STA (02:25)
[2024-05-25] MEDS: PIPERACILLIN-TAZOBACTAM 3.375 GM in SODIUM CHLORIDE 0.9% 100 ML IVPB STA (03:42)
[2024-05-25] MEDS ORDERED: Potassium Replacement Protocol 1 EACH MISC MISCELLANE PRN (04:57)
[2024-05-25] MEDS ORDERED: Phosphorus Replacement Protoco 1 EACH MISC MISCELLANE PRN (04:57)
[2024-05-25] MEDS ORDERED: IPRATROPIUM-ALBUTEROL 3 ML NEB INHALATION PRN (04:57)
[2024-05-25] MEDS ORDERED: NALOXONE 0.4 MG/ML 1 ML VIAL IV PRN (04:57)
[2024-05-25] MEDS ORDERED: Magnesium Replacement Protocol 1 EACH MISC MISCELLANE PRN (04:57)
[2024-05-25 05:00] LABS: Allen Test Performed? Yes
[2024-05-25 05:01] LABS: ABG Base Excess -17.9 mmol/L; ABG HCO3 12 mmol/L (21-25); ABG PCO2 44 mmHg (35-45); ABG PH 7.04 (7.35-7.45); ABG PO2 58 mmHg (83-108); ABG TCO2 13 mmol/L (19-24)
--- NOTE | 2024-05-25 05:03 | XR ---
EXAMINATION TYPE: XR chest 1V portable DATE OF EXAM: 05/25/2024 4:53 AM COMPARISON: Chest x-ray earlier same date CLINICAL INDICATION: Female, 43 years old with history of Tube placement, TECHNIQUE: XR chest 1V portable view(s) obtained. FINDINGS: The heart size is prominent. The pulmonary vasculature is prominent. Diffuse upper lobe adjacent to the right grams are present. Finding is stable from comparison. Correl ate for pulmonary edema. Endotracheal tube is been adjusted located 4.2 cm above the mati. Right central venous catheter tip is in the distal superior vena cava region. Nasogastric tube transverses the thorax. IMPRESSION: 1. Persistent pulmonary edema upper lobes. 2. Adjustment of the endotracheal tube located 4.2 cm above the mati. 3. Additional lines and catheters discussed above [facility], , 05/25/2024 5:00 AM
[2024-05-25] MEDS: FUROSEMIDE 10 MG/ML 4 ML VIAL IV STA (05:24)
[2024-05-25] MEDS: VASOPRESSIN 20 UNIT in SODIUM CHLORIDE 0.9% 50 ML IV SCH (06:56)
[2024-05-25 07:15] LABS: Glucose,Whole Blood 79 mg/dL (70-110)
[2024-05-25 07:38] VITALS: RESP 16; TEMP 98.2
[2024-05-25 07:56] VITALS: BP 80/33; PULSE 67
[2024-05-25] MEDS: PANTOPRAZOLE 40 MG/10 ML VIAL IV SCH (08:09)
--- NOTE | 2024-05-25 10:20 | P.HPIM ---
History of Present Illness 43-year-old female came i in after cardiac arrest. Patient received 5 rounds of epi went into V. tach received amiodarone defibrillation patient was subsequently intubated was able to successfully resuscitate. Patient is found to have highly elevated troponin of 36. Possibly had a myocardial infarction patient does not have any other medical problems patient has metabolic as well as respiratory acidosis with pH of 6.98 pCO2 of 54 after intubation pH improved slightly pCO2 improved slightly. Patient coded again multiple times. By the time I evaluate the patient patient already patient is jaundiced. Does have abdominal distention with ascites Physical exam As mentioned above patient no pulse Assessment and plan Cardiorespiratory arrest successful resuscitation followed by unsuccessful sedation patient -Possible acute NV -Possible cirrhosis -Severe metabolic acidosis lactic acidosis -Respiratory acidosis Past Medical History Past Medical History: No Reported History Past Surgical History: No Surgical Hx Reported Medications and Allergies Allergies Allergy/AdvReac Type Severity Reaction Status Date / Time No Known Allergies Allergy Verified 05/25/24 02:07 Physical Exam Vitals: Vital Signs Temp Pulse Resp BP Pulse Ox FiO2 05/25/24 07:55 67 80/33 43 L 05/25/24 07:37 98.2 F 104 H 16 102/57 84 L 05/25/24 06:55 96 20 67/43 65 L 05/25/24 06:50 98 20 74/48 05/25/24 06:45 101 H 20 71/42 63 L 05/25/24 06:40 103 H 20 74/42 59 L 05/25/24 06:35 104 H 20 77/49 62 L 05/25/24 06:30 104 H 20 81/48 63 L 05/25/24 06:25 105 H 20 79/50 61 L 05/25/24 06:20 105 H 20 79/45 62 L 05/25/24 06:15 97.5 F L 105 H 20 77/36 63 L 05/25/24 06:10 105 H 20 80/49 70 L 05/25/24 06:05 105 H 20 90/43 66 L 05/25/24 06:00 105 H 20 81/51 63 L 05/25/24 05:55 105 H 20 79/55 64 L 05/25/24 05:50 106 H 20 83/54 63 L 05/25/24 05:45 107 H 20 88/58 67 L 05/25/24 05:41 97.3 F L 05/25/24 05:40 107 H 20 84/55 66 L 05/25/24 05:35 105 H 20 81/54 69 L 05/25/24 05:30 106 H 20 82/55 69 L 05/25/24 05:25 106 H 20 91/57 67 L 05/25/24 05:20 107 H 20 84/56 64 L 05/25/24 05:15 107 H 20 104/55 65 L 05/25/24 05:10 107 H 20 87/54 63 L 05/25/24 05:05 106 H 20 86/54 54 L 05/25/24 05:01 96.6 F L 05/25/24 05:00 107 H 20 88/54 75 L 05/25/24 04:55 108 H 20 91/58 71 L 05/25/24 04:50 108 H 20 99/62 75 L 05/25/24 04:45 106 H 20 94/61 71 L 05/25/24 04:40 106 H 20 79/62 75 L 05/25/24 04:35 106 H 20 79/62 75 L 05/25/24 04:30 104 H 20 92/58 05/25/24 04:25 105 H 20 92/58 05/25/24 04:20 105 H 20 88/62 05/25/24 04:15 104 H 20 88/62 05/25/24 04:10 102 H 20 88/67 74 L 05/25/24 04:05 103 H 20 80/67 72 L 05/25/24 04:00 94.8 F L 100 16 93/67 73 L 05/25/24 03:50 100 17 94/69 77 L 05/25/24 03:49 100 05/25/24 03:40 99 18 103/64 77 L 05/25/24 03:30 99 22 99/64 78 L 05/25/24 03:20 97 14 101/63 83 L 05/25/24 03:10 96 22 96/71 86 L 05/25/24 03:00 94 19 100/66 87 L 05/25/24 02:50 91 18 99/66 91 L 05/25/24 02:40 91 23 98/66 94 L 05/25/24 02:30 87 22 95/65 94 L 05/25/24 02:20 87 8 L 90/60 94 L 05/25/24 02:10 87 23 86/68 90 L 05/25/24 02:05 86 24 85/69 88 L 05/25/24 02:00 87 12 92/55 87 L 05/25/24 01:58 100 05/25/24 01:55 85 11 L 90/60 89 L 05/25/24 01:50 88 18 92/60 78 L 05/25/24 01:45 89 20 93/65 74 L 05/25/24 01:40 93.4 F L 100 20 98/67 70 L 05/25/24 01:35 90 20 99/61 71 L 05/25/24 01:30 98 20 103/63 71 L 05/25/24 01:05 92 18 107/73 70 L 05/25/24 01:00 91 20 111/91 05/25/24 00:55 90 21 106/73 65 L 05/25/24 00:53 92 17 104/74 66 L 05/25/24 00:30 100 05/25/24 00:25 100 05/25/24 00:10 0 L 0 L 0 L Intake and Output 05/24/24 05/25/24 05/25/24 22:59 06:59 14:59 Intake Total 373.122 Balance 373.122 Intake: Intake, IV Titration 373.122 Amount Norepinephrine 4 mg In 143.804 Sodium Chloride 0.9% 250 ml @ 0.03 MCG/KG/MIN 11. 373 mls/hr IV .[id number] [facility] Rx#:[id number] fentaNYL (PF). 1,000 mcg 74.045 In Sodium Chloride 0.9% 80 ml @ 0.5 MCG/KG/HR 4. 975 mls/hr IV .[id number] [facility] Rx#:[id number] propofoL 1,000 mg In 155.273 Empty Bag 1 bag @ 15 MCG/ KG/MIN 8.955 mls/hr IV . [id number] [facility] Rx#:[id number] Other: Weight 99.5 kg Results CBC & Chem 7: 05/25/24 00:17 05/25/24 00:17 Labs: Abnormal Lab Results - Last 24 Hours (Table) 05/25/24 05/25/24 05/25/24 Range/Units 00:17 00:17 00:17 WBC 18.5 H (3.8-10.6) k/uL RBC 2.89 L (3.80-5.40) m/uL Hgb 10.3 L (11.4-16.0) gm/dL MCV 117.8 H (80.0-100.0) fL MCH 35.7 H (25.0-35.0) pg MCHC 30.3 L (31.0-37.0) g/dL RDW 19.1 H (11.5-15.5) % Neutrophils # 11.5 H (1.3-7.7) k/uL Lymphocytes # 5.1 H (1.0-4.8) k/uL Macrocytosis Marked A PT 19.8 H (10.0-12.5) sec INR 2.0 H (<1.2) APTT 37.6 H (22.0-30.0) sec D-Dimer >34.10 H (<0.60) mg/L FEU ABG pH (7.35-7.45) ABG pCO2 (35-45) mmHg ABG pO2 (83-108) mmHg ABG HCO3 (21-25) mmol/L ABG Total CO2 (19-24) mmol/L ABG O2 Saturation (94-97) % Potassium 2.2 L* (3.5-5.1) mmol/L Chloride 109 H (98-107) mmol/L Carbon Dioxide 15 L (22-30) mmol/L BUN <2 L (7-17) mg/dL Glucose 113 H (74-99) mg/dL Plasma Lactic Acid Moody (0.7-2.0) mmol/L Calcium 11.2 H (8.4-10.2) mg/dL Total Bilirubin 6.3 H (0.2-1.3) mg/dL AST 189 H (14-36) U/L ALT 37 H (4-34) U/L Alkaline Phosphatase 230 H (38-126) U/L Troponin I (0.000-0.034) ng/mL Albumin 2.6 L (3.5-5.0) g/dL 05/25/24 05/25/24 05/25/24 Range/Units 00:17 00:18 01:40 WBC (3.8-10.6) k/uL RBC (3.80-5.40) m/uL Hgb (11.4-16.0) gm/dL MCV (80.0-100.0) fL MCH (25.0-35.0) pg MCHC (31.0-37.0) g/dL RDW (11.5-15.5) % Neutrophils # (1.3-7.7) k/uL Lymphocytes # (1.0-4.8) k/uL Macrocytosis PT (10.0-12.5) sec INR (<1.2) APTT (22.0-30.0) sec D-Dimer (<0.60) mg/L FEU ABG pH 6.98 L* (7.35-7.45) ABG pCO2 54 H (35-45) mmHg ABG pO2 72 L (83-108) mmHg ABG HCO3 13 L (21-25) mmol/L ABG Total CO2 15 L (19-24) mmol/L ABG O2 Saturation 80.0 L (94-97) % Potassium (3.5-5.1) mmol/L Chloride (98-107) mmol/L Carbon Dioxide (22-30) mmol/L BUN (7-17) mg/dL Glucose (74-99) mg/dL Plasma Lactic Acid Moody 15.6 H* (0.7-2.0) mmol/L Calcium (8.4-10.2) mg/dL Total Bilirubin (0.2-1.3) mg/dL AST (14-36) U/L ALT (4-34) U/L Alkaline Phosphatase (38-126) U/L Troponin I 0.296 H* (0.000-0.034) ng/mL Albumin (3.5-5.0) g/dL 05/25/24 05/25/24 05/25/24 Range/Units 04:33 04:52 04:52 WBC (3.8-10.6) k/uL RBC (3.80-5.40) m/uL Hgb (11.4-16.0) gm/dL MCV (80.0-100.0) fL MCH (25.0-35.0) pg MCHC (31.0-37.0) g/dL RDW (11.5-15.5) % Neutrophils # (1.3-7.7) k/uL Lymphocytes # (1.0-4.8) k/uL Macrocytosis PT (10.0-12.5) sec INR (<1.2) APTT (22.0-30.0) sec D-Dimer (<0.60) mg/L FEU ABG pH 7.04 L* (7.35-7.45) ABG pCO2 (35-45) mmHg ABG pO2 58 L* (83-108) mmHg ABG HCO3 12 L (21-25) mmol/L ABG Total CO2 13 L (19-24) mmol/L ABG O2 Saturation 71.0 L (94-97) % Potassium (3.5-5.1) mmol/L Chloride (98-107) mmol/L Carbon Dioxide (22-30) mmol/L BUN (7-17) mg/dL Glucose (74-99) mg/dL Plasma Lactic Acid Moody 17.9 H* (0.7-2.0) mmol/L Calcium (8.4-10.2) mg/dL Total Bilirubin (0.2-1.3) mg/dL AST (14-36) U/L ALT (4-34) U/L Alkaline Phosphatase (38-126) U/L Troponin I 36.400 H* (0.000-0.034) ng/mL Albumin (3.5-5.0) g/dL
--- NOTE | 2024-05-25 10:20 | P.DS ---
Providers Date of admission: 05/25/24 05:00 Attending physician: Tanya Gee Consults: 05/25/24 04:57 Consult Physician Routine Consulting Provider: Dmitri Zhu Consult Reason/Comments: cardiac arrest Do you want consulting provider notified?: Yes, Notify in am Consult Physician Stat Consulting Provider: Nj Rowland Reason/Comments: Critical care Do you want consulting provider notified?: Already Contacted Primary care physician: Stated None Hospital Course: 43-year-old female came i in after cardiac arrest. Patient received 5 rounds of epi went into V. tach received amiodarone defibrillation patient was subsequently intubated was able to successfully resuscitate. Patient is found to have highly elevated troponin of 36. Possibly had a myocardial infarction pa tient does not have any other medical problems patient has metabolic as well as respiratory acidosis with pH of 6.98 pCO2 of 54 after intubation pH improved slightly pCO2 improved slightly. Patient coded again multiple times. By the time I evaluate the patient patient already patient is jaundiced. Does have abdominal distention with ascites Physical exam As mentioned above patient no pulse Assessment and plan Cardiorespiratory arrest successful resuscitation followed by unsuccessful sedation patient -Possible acute RI -Possible cirrhosis -Severe metabolic acidosis lactic acidosis -Respiratory acidosis Pulmonary cause of cardiorespiratory arrest secondary to acute myocardial infarction Patient Condition at Discharge: Critical Plan - Discharge Summary Follow up Appointment(s)/Referral(s): None,Stated [Primary Care Provider] - 1-2 days
--- NOTE | 2024-05-25 10:57 | P.CNPUL ---
History of Present Illness Consult date: 05/25/24 Requesting physician: Ulises Bobby Reason for consult: other (Ventilator/critical care management) Chief complaint: Cardiac arrest History of present illness: This is a 43-year-old female patient with a history of psoriasis and had been previously taking medication possibly Skyrizi according to the family that had been not making her feel well. She stopped the medicine about a month ago. Otherwise no significant past medical history. Last evening around 11 p.m. patient had suddenly grabbed her thigh then her chest then collapsed to the ground. First responders arrived and initiated compressions. The patient received 5 rounds of epi and was noted to be in ventricular tachycardia and received 300 mg amiodarone and defibrillation. They did get return of spontaneous circulation however en route to the hospital she arrested again and CPR was started. There was approximately 50 minutes from the EEA and was again treated with CPR and obtained return of spontaneous circulation. Chest x-ray reveals diffuse increased lung markings compatible with pulmonary edema. Mild cardiomegaly. CT scan of the brain reveals diffuse loss of mendoza-white matter differentiation related to anoxic injury. CT angiogram ruled out pulmonary embolism. Again diffuse pulmonary edema throughout upper and lower lungs. Ascites within the abdomen. White count 18.5. Hemoglobin 10.3. Platelets 150. INR 2.0. D-dimer greater than 34. Sodium 144. Potassium 2.2. Bicarb 15. Glucose 113. Lactic acid 18. AST 189. ALT 37. Alk phos 230. Troponin 36.4. Urine drug screen was negative. The patient arrested again approximately 7 AM this morning with CPR return of spontaneous circulation. She was on norepinephrine at 0.2 mcg/kg/min. Vasopressin at 0.03 units/min. Intubated on the mechanical ventilator out of assist-control mode at a rate of 22, tidal volume 400, FiO2 100% and a PEEP of 15. Most recent blood gases revealed a PaO2 of 58, pCO2 44 and a pH of 7.04. Upon our arrival to the emergency room the patient was in PEA again and CPR was again initiated. Review of Systems ROS unobtainable: due to endotracheal tube Past Medical History Past Medical History: No Reported History Past Surgical History: No Surgical Hx Reported Medications and Allergies Allergies Allergy/AdvReac Type Severity Reaction Status Date / Time No Known Allergies Allergy Verified 12/15/24 02:07 Physical Exam Vitals: Vital Signs Temp Pulse Resp BP Pulse Ox FiO2 05/25/24 07:55 67 80/33 43 L 05/25/24 07:37 98.2 F 104 H 16 102/57 84 L 05/25/24 06:55 96 20 67/43 65 L 05/25/24 06:50 98 20 74/48 05/25/24 06:45 101 H 20 71/42 63 L 05/25/24 06:40 103 H 20 74/42 59 L 05/25/24 06:35 104 H 20 77/49 62 L 05/25/24 06:30 104 H 20 81/48 63 L 05/25/24 06:25 105 H 20 79/50 61 L 05/25/24 06:20 105 H 20 79/45 62 L 05/25/24 06:15 97.5 F L 105 H 20 77/36 63 L 05/25/24 06:10 105 H 20 80/49 70 L 05/25/24 06:05 105 H 20 90/43 66 L 05/25/24 06:00 105 H 20 81/51 63 L 05/25/24 05:55 105 H 20 79/55 64 L 05/25/24 05:50 106 H 20 83/54 63 L 05/25/24 05:45 107 H 20 88/58 67 L 05/25/24 05:41 97.3 F L 05/25/24 05:40 107 H 20 84/55 66 L 05/25/24 05:35 105 H 20 81/54 69 L 05/25/24 05:30 106 H 20 82/55 69 L 05/25/24 05:25 106 H 20 91/57 67 L 05/25/24 05:20 107 H 20 84/56 64 L 05/25/24 05:15 107 H 20 104/55 65 L 05/25/24 05:10 107 H 20 87/54 63 L 05/25/24 05:05 106 H 20 86/54 54 L 05/25/24 05:01 96.6 F L 05/25/24 05:00 107 H 20 88/54 75 L 05/25/24 04:55 108 H 20 91/58 71 L 05/25/24 04:50 108 H 20 99/62 75 L 05/25/24 04:45 106 H 20 94/61 71 L 05/25/24 04:40 106 H 20 79/62 75 L 05/25/24 04:35 106 H 20 79/62 75 L 05/25/24 04:30 104 H 20 92/58 05/25/24 04:25 105 H 20 92/58 05/25/24 04:20 105 H 20 88/62 05/25/24 04:15 104 H 20 88/62 05/25/24 04:10 102 H 20 88/67 74 L 05/25/24 04:05 103 H 20 80/67 72 L 05/25/24 04:00 94.8 F L 100 16 93/67 73 L 05/25/24 03:50 100 17 94/69 77 L 05/25/24 03:49 100 05/25/24 03:40 99 18 103/64 77 L 05/25/24 03:30 99 22 99/64 78 L 05/25/24 03:20 97 14 101/63 83 L 05/25/24 03:10 96 22 96/71 86 L 05/25/24 03:00 94 19 100/66 87 L 05/25/24 02:50 91 18 99/66 91 L 05/25/24 02:40 91 23 98/66 94 L 05/25/24 02:30 87 22 95/65 94 L 05/25/24 02:20 87 8 L 90/60 94 L 05/25/24 02:10 87 23 86/68 90 L 05/25/24 02:05 86 24 85/69 88 L 05/25/24 02:00 87 12 92/55 87 L 05/25/24 01:58 100 05/25/24 01:55 85 11 L 90/60 89 L 05/25/24 01:50 88 18 92/60 78 L 05/25/24 01:45 89 20 93/65 74 L 05/25/24 01:40 93.4 F L 100 20 98/67 70 L 05/25/24 01:35 90 20 99/61 71 L 05/25/24 01:30 98 20 103/63 71 L 05/25/24 01:05 92 18 107/73 70 L 05/25/24 01:00 91 20 111/91 05/25/24 00:55 90 21 106/73 65 L 05/25/24 00:53 92 17 104/74 66 L 05/25/24 00:30 100 05/25/24 00:25 100 05/25/24 00:10 0 L 0 L 0 L Intake and Output 05/24/24 05/25/24 05/25/24 22:59 06:59 14:59 Intake Total 373.122 Balance 373.122 Intake: Intake, IV Titration 373.122 Amount Norepinephrine 4 mg In 143.804 Sodium Chloride 0.9% 250 ml @ 0.03 MCG/KG/MIN 11. 373 mls/hr IV .[id number] [facility] Rx#:[id number] fentaNYL (PF). 1,000 mcg 74.045 In Sodium Chloride 0.9% 80 ml @ 0.5 MCG/KG/HR 4. 975 mls/hr IV .[id number] [facility] Rx#:[id number] propofoL 1,000 mg In 155.273 Empty Bag 1 bag @ 15 MCG/ KG/MIN 8.955 mls/hr IV . [id number] [facility] Rx#:[id number] Other: Weight 99.5 kg GENERAL EXAM:, Intubated jaundiced appearing 43-year-old female on the mechanical ventilator. HEAD: Normocephalic. EYES: Minimal reaction of pupils, equal size. NOSE: Clear with pink turbinates. THROAT: Oral endotracheal and gastric tubes secured in place. NECK: No masses, no JVD. CHEST: No chest wall deformity. LUNGS: Equal air entry with bilateral scattered rhonchi, crackles. CVS: Currently in PEA. ABDOMEN: Abdominal distention with ascites. SPINE: No scoliosis or deformity SKIN: No rashes CENTRAL NERVOUS SYSTEM: Unresponsive, tone is normal in all 4 extremities. EXTREMITIES: There is no peripheral edema. No clubbing, no cyanosis. Results - Laboratory Findings CBC and BMP: 05/25/24 00:17 05/25/24 00:17 ABG ABG pH 7.04 (7.35-7.45) L* 05/25/24 04:33 ABG pCO2 44 mmHg (35-45) 05/25/24 04:33 ABG pO2 58 mmHg (83-108) L* 05/25/24 04:33 ABG O2 Saturation 71.0 % (94-97) L 05/25/24 04:33 PT/INR, D-dimer PT 19.8 sec (10.0-12.5) H 05/25/24 00:17 INR 2.0 (<1.2) H 05/25/24 00:17 D-Dimer >34.10 mg/L FEU (<0.60) H 05/25/24 00:17 Abnormal lab findings: Abnormal Labs 05/25/24 05/25/24 05/25/24 00:17 00:17 00:17 WBC 18.5 H RBC 2.89 L Hgb 10.3 L MCV 117.8 H MCH 35.7 H MCHC 30.3 L RDW 19.1 H Neutrophils # 11.5 H Lymphocytes # 5.1 H Macrocytosis Marked A PT 19.8 H INR 2.0 H APTT 37.6 H D-Dimer >34.10 H ABG pH ABG pCO2 ABG pO2 ABG HCO3 ABG Total CO2 ABG O2 Saturation Potassium 2.2 L* Chloride 109 H Carbon Dioxide 15 L BUN <2 L Glucose 113 H Plasma Lactic Acid Moody Calcium 11.2 H Total Bilirubin 6.3 H AST 189 H ALT 37 H Alkaline Phosphatase 230 H Troponin I Albumin 2.6 L 05/25/24 05/25/24 05/25/24 00:17 00:18 01:40 WBC RBC Hgb MCV MCH MCHC RDW Neutrophils # Lymphocytes # Macrocytosis PT INR APTT D-Dimer ABG pH 6.98 L* ABG pCO2 54 H ABG pO2 72 L ABG HCO3 13 L ABG Total CO2 15 L ABG O2 Saturation 80.0 L Potassium Chloride Carbon Dioxide BUN Glucose Plasma Lactic Acid Moody 15.6 H* Calcium Total Bilirubin AST ALT Alkaline Phosphatase Troponin I 0.296 H* Albumin 05/25/24 05/25/24 05/25/24 04:33 04:52 04:52 WBC RBC Hgb MCV MCH MCHC RDW Neutrophils # Lymphocytes # Macrocytosis PT INR APTT D-Dimer ABG pH 7.04 L* ABG pCO2 ABG pO2 58 L* ABG HCO3 12 L ABG Total CO2 13 L ABG O2 Saturation 71.0 L Potassium Chloride Carbon Dioxide BUN Glucose Plasma Lactic Acid Moody 17.9 H* Calcium Total Bilirubin AST ALT Alkaline Phosphatase Troponin I 36.400 H* Albumin - Diagnostic Findings Chest x-ray: image reviewed CT scan - chest: image reviewed Assessment and Plan Assessment: Cardiac arrest requiring multiple rounds of CPR with significant downtime. CT scan of the brain reveals diffuse loss of mendoza-white matter differentiation which could be related to anoxic injury. This was prior to the last 2 episodes of cardiac arrest Acute hypoxemic respiratory failure secondary to above requiring intubation mechanical ventilatory support. Diffuse interstitial pulmonary edema. Pulmonary embolism ruled out Elevated troponins, possible acute coronary syndrome Diffuse pulmonary edema Jaundice of unclear etiology, CT scan revealed ascites Severe metabolic acidosis History of psoriasis and was previously on treatment, possibly Skyrizi, however stopped due to waking her feel poorly Plan: The patient was seen and evaluated Imaging, labs, ABGs and medications reviewed The patient had sustained at least 5 episodes [address] Rowland spoke in detail with the patient's and children who are at the bedside The final code was terminated at 8 AM this morning and the patient I have personally seen and examined the patient, performed the documentation and the assessment and plan as written. Number of minutes spent on the visit: 20 Dictation was produced using [employer] dictation software. Please excuse any g rammatical, word or spelling errors.
--- NOTE | 2024-05-27 11:56 | CDI ---
Documentation Clarification Form Date: 05/27/24 From: Sonia Porter Admit Date: 05/25/2024 05:00:00 AM Patient Name: Sultana Forde Visit Number: [id number] Discharge Date: 05/25/2024 11:01:00 AM ATTENTION: The Clinical Documentation Specialists (CDI) and [facility] Coding Staff appreciate your assistance in clarifying documentation. Please respond to the clarification below the line at the bottom and electronically sign. The CDI & [facility] Coding staff will review the response and follow-up if needed. Please note: Queries are made part of the Legal Health Record. If you have any questions, please contact the author of this message via ITS. Doctor/Provider: Ulises Bobby, There is documentation of severe pulmonary edema per ED Note. Additional clarification of the acuity of the condition is requested. History/Risk Factors: No previous medical history other than psoriasis. Clinical Indicators: Cardiac arrest, hypokalemia, severe pulmonary edema, acute hypoxic respiratory failure, anoxic brain injury and hepatic dysfunction. Treatment: Patient was initially started on 2 L IV fluids over this was discontinued due to severepulmonary edemaand was started onLevophed. Pt difficult tooxygenate soPEEPsubsequently increased to 8 and then 10, with improvedoxygenationto 95%.K 2.2, 60 mEq K ordered via central line. Can you please clarify the acuity of the pulmonary edema? [x ] Acute [ ] Sub-acute [ ] Chronic [ ] History of [ ] Other, please specify [ ] Unable to determine MTDD
== END 2024-05-25 11:01 | disposition expired ==
LOC: EC 00:02 → 2SICU 05:00
PROVIDERS: ADMIT Internal Medicine; ATTEND Internal Medicine
DX: I21.9 Acute myocardial infarction, unspecified (principal); J81.0 Acute pulmonary edema; J96.01 Acute respiratory failure with hypoxia; G93.1 Anoxic brain damage, not elsewhere classified; I47.20 Ventricular tachycardia, unspecified; R18.8 Other ascites; E87.29 Other acidosis; I46.2 Cardiac arrest due to underlying cardiac condition; K74.60 Unspecified cirrhosis of liver; L40.9 Psoriasis, unspecified; E87.6 Hypokalemia
CPT/HCPCS: 31500; 36415; 36600; 70450; 71045; 71275; 80053; 80306; 80320; 82805; 83605; 83735; 84484; 84702; 85025; 85379; 85610; 85730; 87040; 92950; 93005; 94002; 96365; 96366; 96367; 96368; 96375; 96376; 99291